=== PATIENT | female | born 1975 | race Caucasian/White ===

== ENCOUNTER 2023-06-09 17:57 | Inpatient (IN) | payer MEDICAID ==
[~2023-06-09] VITALS: Ht 160 cm; Wt 60.9 kg
[2023-06-09 18:10] VITALS: BP 93/66; PULSE 129; RESP 18; TEMP 97.7; O2SAT 98
[2023-06-09] MEDS: NACL 0.9% 1,000 ML IV ONE ×2 (18:58→21:50)
[2023-06-09] MEDS: ONDANSETRON 4 MG/2 ML VIAL IVP ONE ×2 (18:59→20:53)
[2023-06-09 19:10] LABS: APPEARANCE,URINE CLEAR (CLEAR); BILIRUBIN,URINE NEGATIVE (NEGATIVE); BLOOD, URINE NEGATIVE (NEGATIVE); COLOR,URINE LT. YELLOW (YELLOW); LEUKOCYTE ESTERASE ,URINE TRACE (NEGATIVE); NITRITE, URINE NEGATIVE (NEGATIVE); PROTEIN,URINE NEGATIVE (NEGATIVE); UGLUCOSE NEGATIVE (NEGATIVE); UROBILINOGEN,URINE 0.2 EU/dL (0.2 - 1)
[2023-06-09 19:11] LABS: BACTERIA,URINE 1+ /HPF (None Seen); RBC,URINE 0 /HPF (0-5); SQUAMOUS EPITHELIAL CELL,UR 0-3 (FEW) /LPF (0-3 (FEW)); WBC,URINE 0-5 /HPF (0-5)
[2023-06-09 19:12] LABS: MUCUS,URINE None Seen /LPF (None Seen)
[2023-06-09 19:14] LABS: BASOPHILS # (AUTO) 0.2 K/uL (0.00-0.22); BASOPHILS % (AUTO) 2.8 % (0.0-2.0); EOSINOPHILS % (AUTO) 0.1 % (0.0-4.0); HEMATOCRIT 26.9 % (36-48); HEMOGLOBIN 8.8 g/dL (12.0-16.0); LYMPHOCYTES # (AUTO) 0.8 K/uL (2.5-16.5); LYMPHOCYTES % (AUTO) 12.6 % (20.5-51.1); MEAN CORPUSCULAR HEMOGLOBIN 28 pg (27-31); MEAN CORPUSCULAR HGB CONC 33 g/dL (33-37); MEAN CORPUSCULAR VOLUME 85.4 fL (80-94); MONOCYTES # (AUTO) 0.3 K/uL (0.8-1.0); MONOCYTES % (AUTO) 5.1 % (1.7-9.3); NEUTROPHILS # (AUTO) 5.1 K/uL (1.8-7.7); NEUTROPHILS % (AUTO) 79.4 % (42.2-75.2); PLATELET COUNT (AUTO) 290 K/uL (140-450); RED BLOOD CELL COUNT(AUTO) 3.14 MIL/uL (4.20-5.40); RED CELL DISTRIBUTION WIDTH 21.1 % (11.6-13.7); WHITE BLOOD COUNT (AUTO) 6.4 K/uL (4.8-10.8)
[2023-06-09 19:37] LABS: ALBUMIN 3.7 g/dL (3.4-5.0); BILIRUBIN,DIRECT 0.2 mg/dL (0.0-0.3); TOTAL BILIRUBIN 0.7 mg/dL (0.0-1.0); TOTAL PROTEIN, SERUM 7.1 g/dL (6.4-8.2)
[2023-06-09 19:43] LABS: ANION GAP 17.6 (8-16); CALCIUM 8.6 mg/dL (8.5-10.1); CARBON DIOXIDE 27.9 mmol/L (21-32); POTASSIUM 3.5 mmol/L (3.5-5.1)
[2023-06-09] MEDS ORDERED: PANTOPRAZOLE 40 MG INJ VIAL ONE ×2 (20:18→20:20)
[2023-06-09] MEDS ORDERED: cefTRIAXone 1,000 MG VIAL ONE (20:19)
[2023-06-09] MEDS: PANTOPRAZOLE 80 MG in NACL 0.9% 100 ML IV SCH ×2 (20:46→22:30)
[2023-06-09] MEDS: DEXT 5% / NACL 0.45% 1,000 ML IV SCH (21:30)
[2023-06-09] MEDS ORDERED: DEXTROSE 50% 50 ML SYR IVP PRN (21:30)
[2023-06-09] MEDS ORDERED: MORPHINE SULFATE 2 MG/ML SYR IVP PRN (21:30)
[2023-06-09] MEDS: DIAZEPAM PFS 10 MG/2 ML SYR IVP ONE (21:51)
[2023-06-09] MEDS: METOCLOPRAMIDE 10 MG/2 ML INJ VIAL IVP ONE (21:51)
[2023-06-09] MEDS ORDERED: METF-346 PO (23:00)
[2023-06-09] MEDS ORDERED: METO50TE2 PO (23:00)
[2023-06-09] MEDS ORDERED: THIAMINE 200 MG/2 ML VIAL IM SCH (23:00)
[2023-06-10] VITALS (7 sets, daily range): BP systolic 91–126; BP diastolic 39–76; PULSE 82–136; RESP 16–20; TEMP 97.1–98.6; O2SAT 96–98
[2023-06-10] MEDS: LORazepam 2 MG/ML VIAL IVP PRN (01:08)
[2023-06-10] MEDS: ACETAMINOPHEN 325 MG TAB PO PRN (02:14)
[2023-06-10] MEDS: PROCHLORPERAZINE 10 MG/2 ML VIAL IVP PRN (06:56)
[2023-06-10] MEDS: BLOOD GLUCOSE MONITORING 1 DEV DEV FS SCH (07:16)
[2023-06-10 07:22] LABS: ALBUMIN 3.4 g/dL (3.4-5.0); ANION GAP 8.8 (8-16); CARBON DIOXIDE 31.5 mmol/L (21-32); CREATININE 0.8 mg/dL (0.6-1.3); MAGNESIUM 1.6 mg/dL (1.8-2.4); PHOSPHORUS 3.5 mg/dL (2.5-4.9); POTASSIUM 3.3 mmol/L (3.5-5.1); TOTAL BILIRUBIN 0.7 mg/dL (0.0-1.0); TOTAL PROTEIN, SERUM 6.1 g/dL (6.4-8.2)
[2023-06-10 07:23] LABS: BASOPHILS # (AUTO) 0.1 K/uL (0.00-0.22); BASOPHILS % (AUTO) 0.6 % (0.0-2.0); EOSINOPHILS % (AUTO) 0.2 % (0.0-4.0); LYMPHOCYTES # (AUTO) 1.4 K/uL (2.5-16.5); LYMPHOCYTES % (AUTO) 17.3 % (20.5-51.1); MEAN CORPUSCULAR HEMOGLOBIN 28 pg (27-31); MEAN CORPUSCULAR HGB CONC 33 g/dL (33-37); MEAN CORPUSCULAR VOLUME 85.8 fL (80-94); MONOCYTES # (AUTO) 1.2 K/uL (0.8-1.0); MONOCYTES % (AUTO) 15.1 % (1.7-9.3); NEUTROPHILS # (AUTO) 5.5 K/uL (1.8-7.7); NEUTROPHILS % (AUTO) 66.8 % (42.2-75.2); PLATELET COUNT (AUTO) 238 K/uL (140-450); RED BLOOD CELL COUNT(AUTO) 2.27 MIL/uL (4.20-5.40); RED CELL DISTRIBUTION WIDTH 21.9 % (11.6-13.7); WHITE BLOOD COUNT (AUTO) 8.2 K/uL (4.8-10.8)
[2023-06-10 08:01] LABS: HEMATOCRIT 19.5 % (36-48)
[2023-06-10 08:03] LABS: HEMOGLOBIN 6.4 g/dL (12.0-16.0)
[2023-06-10] MEDS: FOLIC ACID 1 MG TAB PO SCH (08:18)
[2023-06-10] MEDS ORDERED: ZOLPIDEM 10 MG TAB PO PRN (09:00)
[2023-06-10] MEDS ORDERED: ONDANSETRON 4 MG/2 ML VIAL IVP PRN (11:20)
[2023-06-10] MEDS: MAG SULF 2000 MG/WATER PREMIX 50 ML IV PRN (11:29)
[2023-06-10] MEDS: INSULIN LISPRO SLIDING SCALE 100 UNITS/ML VIAL SUBQ PRN (11:45)
[2023-06-10] MEDS: POTASSIUM CHLORIDE 10 MEQ TABER PO PRN (12:44)
[2023-06-10] MEDS: HYDROcodone/APAP 5/325 MG 1 TAB TAB PO PRN (17:19)
[2023-06-11] VITALS: BP 125/72; PULSE 100; PULSE 101; RESP 16; TEMP 98.4
[2023-06-11 04:00] VITALS: BP 146/99; PULSE 64; PULSE 87; RESP 18; TEMP 97.3
[2023-06-11 08:00] VITALS: BP 134/77; PULSE 107; PULSE 91; RESP 18; TEMP 98.5; O2SAT 97; O2SAT 98
[2023-06-11 10:06] LABS: BASOPHILS # (AUTO) 0.1 K/uL (0.00-0.22); BASOPHILS % (AUTO) 2.1 % (0.0-2.0); EOSINOPHILS # (AUTO) 0.2 K/uL (0-0.4); EOSINOPHILS % (AUTO) 3.8 % (0.0-4.0); HEMOGLOBIN 8.7 g/dL (12.0-16.0); MEAN CORPUSCULAR HEMOGLOBIN 29 pg (27-31); MEAN CORPUSCULAR HGB CONC 34 g/dL (33-37); MEAN CORPUSCULAR VOLUME 86.8 fL (80-94); MONOCYTES # (AUTO) 0.4 K/uL (0.8-1.0); MONOCYTES % (AUTO) 9.6 % (1.7-9.3); NEUTROPHILS # (AUTO) 2.6 K/uL (1.8-7.7); NEUTROPHILS % (AUTO) 61.5 % (42.2-75.2); PLATELET COUNT (AUTO) 197 K/uL (140-450); RED CELL DISTRIBUTION WIDTH 17.6 % (11.6-13.7); WHITE BLOOD COUNT (AUTO) 4.2 K/uL (4.8-10.8)
[2023-06-11] MEDS ORDERED: PANT40EC PO (10:20)
[2023-06-11] MEDS ORDERED: THIA50TA39 PO (10:20)
[2023-06-11] MEDS ORDERED: CHLO-1446 PO (10:20)
[2023-06-11] MEDS ORDERED: VITA1TAB44 PO (10:20)
[2023-06-11] MEDS ORDERED: SUCR1TAB35 PO (10:20)
[2023-06-11 10:27] LABS: ALBUMIN 3.3 g/dL (3.4-5.0); ANION GAP 9.2 (8-16); CALCIUM 8.2 mg/dL (8.5-10.1); CREATININE 0.7 mg/dL (0.6-1.3); POTASSIUM 3.2 mmol/L (3.5-5.1); TOTAL BILIRUBIN 0.8 mg/dL (0.0-1.0); TOTAL PROTEIN, SERUM 6.2 g/dL (6.4-8.2)
[2023-06-11] MEDS: THIAMINE 200 MG/2 ML VIAL IM SCH (10:36)
[2023-06-11 10:49] VITALS: BP 134/77; PULSE 91; RESP 18; TEMP 98.5
== END 2023-06-11 11:45 | disposition home or self-care (01) | DRG 242 ==
LOC: MED 17:57 → MTU 21:40
PROVIDERS: ADMIT Family Medicine; ATTEND Family Medicine
PROC: 30233K1 Transfusion of Nonautologous Frozen Plasma into Peripheral Vein, Percutaneous Approach (ICD-10-PCS; principal; 2023-06-10)
PROC: 30233N1 Transfusion of Nonautologous Red Blood Cells into Peripheral Vein, Percutaneous Approach (ICD-10-PCS; 2023-06-11)
DX: K22.6 Gastro-esophageal laceration-hemorrhage syndrome (principal); E87.1 Hypo-osmolality and hyponatremia; E11.65 Type 2 diabetes mellitus with hyperglycemia; F10.10 Alcohol abuse, uncomplicated; D64.9 Anemia, unspecified; Y90.9 Presence of alcohol in blood, level not specified
CPT/HCPCS: 36415; 71045; 74018; 80048; 80053; 80076; 81001; 82948; 83690; 83735; 84100; 85025; 86886; 86900; 86901; 86920; 87040; 87081; 96374; 96375; 99285; C9113; J0696; J0780; J1815; J2060; J2405; J2765; J3360; J3411; J3475; J7060; P9016; P9017

== ENCOUNTER 2023-07-01 18:25 | Emergency (ER) | payer MEDICAID ==
[~2023-07-01] VITALS: Ht 162.6 cm; Wt 64.4 kg
[~2023-07-01 18:25] MED LIST: CHLO-1446 PO; METF-346 PO; METO50TE2 PO; PANT40EC PO; SUCR1TAB35 PO; THIA50TA39 PO; VITA1TAB44 PO
[2023-07-01 18:35] VITALS: BP 144/78; PULSE 97; RESP 18; TEMP 98.1; O2SAT 98
[2023-07-01] MEDS: LIDOCAINE MPF 1% 10 MG/ML VIAL INJ ONE (19:31)
[2023-07-01] MEDS ORDERED: cefTRIAXone 500 MG VIAL ONE (19:39)
[2023-07-01] MEDS: KETOROLAC 30 MG/ML VIAL IM ONE (19:47)
[2023-07-01] MEDS: cefTRIAXone 500 MG in LIDOCAINE MPF 1% 1 ML IM ONE (19:50)
[2023-07-01] MEDS ORDERED: CEPH-588 PO (19:55)
[2023-07-01] MEDS ORDERED: ACET-8905 PO (19:55)
[2023-07-01] MEDS ORDERED: IBUP-2213 PO (19:55)
== END 2023-07-01 20:16 | disposition home or self-care (01) ==
LOC: MED 18:25
DX: L02.412 Cutaneous abscess of left axilla (principal); E11.9 Type 2 diabetes mellitus without complications; Z79.4 Long term (current) use of insulin; Z79.899 Other long term (current) drug therapy
CPT/HCPCS: 10060; 81025; 96372; 99284; J0696; J1885; J2001

== ENCOUNTER 2023-07-03 17:51 | Emergency (ER) | payer MEDICAID ==
[~2023-07-03] VITALS: Ht 160 cm; Wt 64.9 kg
[~2023-07-03 17:51] MED LIST changes: +ACET-8905 PO; +CEPH-588 PO; +IBUP-2213 PO
[2023-07-03 18:08] VITALS: BP 135/84; PULSE 92; RESP 18; TEMP 96.9; O2SAT 99
== END 2023-07-03 18:45 | disposition home or self-care (01) ==
LOC: MED 17:51
DX: L02.412 Cutaneous abscess of left axilla (principal); Z48.00 Encounter for change or removal of nonsurgical wound dressing; Z79.899 Other long term (current) drug therapy
CPT/HCPCS: 99281

== ENCOUNTER 2023-07-06 19:17 | Emergency (ER) | payer MEDICAID ==
[~2023-07-06] VITALS: Ht 157.5 cm; Wt 69.4 kg
[2023-07-06 19:56] VITALS: BP 135/66; PULSE 97; RESP 16; TEMP 97.1; O2SAT 98
== END 2023-07-06 21:29 | disposition left against medical advice (07) ==
LOC: MED 19:17
DX: S41.132D Puncture wound without foreign body of left upper arm, subsequent encounter (principal); Z48.00 Encounter for change or removal of nonsurgical wound dressing; Z53.21 Procedure and treatment not carried out due to patient leaving prior to being seen by health care provider; X58.XXXD Exposure to other specified factors, subsequent encounter
CPT/HCPCS: 99281

== ENCOUNTER 2023-09-01 21:42 | Inpatient (IN) | payer SELFPAY ==
[~2023-09-01] VITALS: Ht 162.6 cm; Wt 69.4 kg
[~2023-09-01 21:42] MED LIST changes: +SUCR-3 PO; -SUCR1TAB35 PO
[2023-09-01 22:17] VITALS: BP 117/85; PULSE 107; RESP 14; TEMP 98.6; O2SAT 98
[2023-09-01 23:02] LABS: BASOPHILS % (AUTO) 0.1 % (0.0-2.0); EOSINOPHILS # (AUTO) 0.1 K/uL (0-0.4); EOSINOPHILS % (AUTO) 0.9 % (0.0-4.0); HEMATOCRIT 31.3 % (36-48); LYMPHOCYTES # (AUTO) 0.2 K/uL (2.5-16.5); LYMPHOCYTES % (AUTO) 3.2 % (20.5-51.1); MEAN CORPUSCULAR HEMOGLOBIN 25 pg (27-31); MEAN CORPUSCULAR HGB CONC 32 g/dL (33-37); MEAN CORPUSCULAR VOLUME 78.4 fL (80-94); MONOCYTES # (AUTO) 0.4 K/uL (0.8-1.0); MONOCYTES % (AUTO) 6.7 % (1.7-9.3); NEUTROPHILS # (AUTO) 5.4 K/uL (1.8-7.7); NEUTROPHILS % (AUTO) 89.1 % (42.2-75.2); PLATELET COUNT (AUTO) 268 K/uL (140-450); RED BLOOD CELL COUNT(AUTO) 3.99 MIL/uL (4.20-5.40); RED CELL DISTRIBUTION WIDTH 23.2 % (11.6-13.7); WHITE BLOOD COUNT (AUTO) 6.1 K/uL (4.8-10.8)
[2023-09-01] MEDS: NACL 0.9% 1,000 ML IV SCH (23:02)
[2023-09-01 23:12] LABS: ANION GAP 16.6 (8-16); CALCIUM 9.2 mg/dL (8.5-10.1); CARBON DIOXIDE 28.4 mmol/L (21-32); CREATININE 0.7 mg/dL (0.6-1.3)
[2023-09-01 23:19] LABS: ALBUMIN 4.3 g/dL (3.4-5.0); BILIRUBIN,DIRECT 0.4 mg/dL (0.0-0.3); TOTAL PROTEIN, SERUM 8.2 g/dL (6.4-8.2)
[2023-09-01] MEDS: ONDANSETRON 4 MG/2 ML VIAL IVP ONE (23:27)
[2023-09-02 00:35] LABS: APPEARANCE,URINE CLEAR (CLEAR); BILIRUBIN,URINE NEGATIVE (NEGATIVE); BLOOD, URINE NEGATIVE (NEGATIVE); COLOR,URINE YELLOW (YELLOW); LEUKOCYTE ESTERASE ,URINE NEGATIVE (NEGATIVE); NITRITE, URINE NEGATIVE (NEGATIVE); PROTEIN,URINE NEGATIVE (NEGATIVE); UGLUCOSE NEGATIVE (NEGATIVE); UROBILINOGEN,URINE 0.2 EU/dL (0.2 - 1)
[2023-09-02] MEDS: METOCLOPRAMIDE 10 MG/2 ML INJ VIAL IVP ONE (01:14)
[2023-09-02 01:42] LABS: AMPHETAMINE, URINE NEGATIVE ng/ml (NEG <=1000); BARBITURATE, URINE NEGATIVE ng/ml (NEG <=200); BENZODIAZEPINE, URINE NEGATIVE ng/mL (NEG <=200); CANNABINOID, URINE NEGATIVE ng/mL (NEG <=50); COCAINE, URINE NEGATIVE ng/mL (NEG <=300); OPIATE, URINE NEGATIVE ng/mL (NEG <=2000); PHENCYCLIDINE SCREEN,URINE NEGATIVE ng/mL (NEG <=25)
[2023-09-02] MEDS: NACL 0.9% 1,000 ML IV ONE (01:43)
[2023-09-02] MEDS: ONDANSETRON 4 MG/2 ML VIAL IVP ONE (01:49)
[2023-09-02] MEDS: MORPHINE SULFATE 4 MG/ML SYR IVP ONE (01:50)
[2023-09-02] MEDS: metroNIDAZOLE 500 MG/NS PREMIX 100 ML IV ONE (04:24)
[2023-09-02] MEDS: LEVOFLOXACIN 500 MG/D5W PREMIX 100 ML IV ONE (05:28)
[2023-09-02] MEDS ORDERED: HYDROcodone/APAP 5/325 MG 1 TAB TAB PO PRN (05:40)
[2023-09-02] MEDS: POTASSIUM CHLORIDE 10 MEQ TABER PO ONE (06:26)
[2023-09-02] MEDS: NACL 0.9% 1,000 ML IV SCH (06:55)
[2023-09-02] MEDS: metroNIDAZOLE 500 MG TAB PO SCH (07:15)
[2023-09-02] MEDS: ENOXAPARIN 40 MG/0.4 ML SYR SUBQ SCH (09:24)
[2023-09-02] MEDS: MORPHINE SULFATE 4 MG/ML SYR IVP PRN (09:37)
[2023-09-02] MEDS: ONDANSETRON 4 MG/2 ML VIAL IVP PRN (09:37)
[2023-09-02 10:05] VITALS: PULSE 74
[2023-09-02 10:15] VITALS: RESP 17
[2023-09-02 16:00] VITALS: BP 152/85; RESP 18; TEMP 98.8; O2SAT 98
[2023-09-02] MEDS: HYDROXYZINE HYDROCHLORIDE 10 MG TAB PO PRN (18:25)
[2023-09-02 20:00] VITALS: BP 151/87; RESP 16; TEMP 97.8; O2SAT 94; O2SAT 98
[2023-09-03] VITALS: BP 150/64; RESP 16; TEMP 97.3; O2SAT 93
[2023-09-03 04:00] VITALS: BP 144/79; RESP 18; TEMP 98.1; O2SAT 98
[2023-09-03] MEDS ORDERED: CIPROFLOXACIN 400 MG/200ML-D5W 200 ML IV SCH (05:00)
[2023-09-03 07:11] LABS: BASOPHILS # (AUTO) 0.1 K/uL (0.00-0.22); BASOPHILS % (AUTO) 1.3 % (0.0-2.0); EOSINOPHILS # (AUTO) 0.1 K/uL (0-0.4); EOSINOPHILS % (AUTO) 2.7 % (0.0-4.0); HEMATOCRIT 29.3 % (36-48); HEMOGLOBIN 9.1 g/dL (12.0-16.0); LYMPHOCYTES % (AUTO) 19.4 % (20.5-51.1); MEAN CORPUSCULAR HEMOGLOBIN 25 pg (27-31); MEAN CORPUSCULAR HGB CONC 31 g/dL (33-37); MONOCYTES # (AUTO) 0.7 K/uL (0.8-1.0); MONOCYTES % (AUTO) 13.5 % (1.7-9.3); NEUTROPHILS # (AUTO) 3.3 K/uL (1.8-7.7); NEUTROPHILS % (AUTO) 63.1 % (42.2-75.2); PLATELET COUNT (AUTO) 241 K/uL (140-450); RED BLOOD CELL COUNT(AUTO) 3.67 MIL/uL (4.20-5.40); RED CELL DISTRIBUTION WIDTH 22.5 % (11.6-13.7); WHITE BLOOD COUNT (AUTO) 5.1 K/uL (4.8-10.8)
[2023-09-03 08:00] VITALS: RESP 18; O2SAT 97
[2023-09-03] MEDS: PANTOPRAZOLE 40 MG INJ VIAL IVP SCH (08:41)
[2023-09-03] MEDS: lisinopriL 5 MG TAB PO SCH (09:18)
[2023-09-03 11:04] LABS: ALBUMIN 3.4 g/dL (3.4-5.0); ANION GAP 16.8 (8-16); CALCIUM 8.5 mg/dL (8.5-10.1); CARBON DIOXIDE 24.5 mmol/L (21-32); CREATININE 0.6 mg/dL (0.6-1.3); POTASSIUM 3.3 mmol/L (3.5-5.1); TOTAL BILIRUBIN 0.6 mg/dL (0.0-1.0); TOTAL PROTEIN, SERUM 6.8 g/dL (6.4-8.2)
[2023-09-03] MEDS: POTASSIUM CHLORIDE 10 MEQ TABER PO PRN (12:58)
[2023-09-03] MEDS: ACETAMINOPHEN 325 MG TAB PO PRN (12:59)
[2023-09-03] MEDS ORDERED: ONDA-188 PO (15:04)
[2023-09-04] MEDS ORDERED: lisinopriL 5 MG TAB PO SCH (09:00)
== END 2023-09-03 16:25 | disposition home or self-care (01) | DRG 392 ==
LOC: MED 21:42 → MMU 09-02 05:44 → MTU 09-02 09:38
PROVIDERS: ADMIT Student in an Organized Health Care Education/Training Program; ATTEND Student in an Organized Health Care Education/Training Program
DX: K52.9 Noninfective gastroenteritis and colitis, unspecified (principal); E87.1 Hypo-osmolality and hyponatremia; E87.6 Hypokalemia; D64.9 Anemia, unspecified; I10 Essential (primary) hypertension; F41.9 Anxiety disorder, unspecified; Z79.899 Other long term (current) drug therapy
CPT/HCPCS: 36415; 80048; 80053; 80076; 80305; 81003; 85025; 87040; 87081; 96361; 96365; 96367; 96375; 99285; C9113; J0744; J1650; J1956; J2270; J2405; J2765; J3490